=== PATIENT | male | born 1990 | race Asian ===

== ENCOUNTER 2021-06-25 09:40 | Emergency (ER) | payer OTHER ==
[~2021-06-25] VITALS: Ht 180.3 cm; Wt 95.3 kg
[2021-06-25 09:49] VITALS: BP_SYST 133
[2021-06-25] MEDS ORDERED: D-ME118S48 PO (10:47)
[2021-06-25] MEDS ORDERED: ZIT250 PO (10:47)
[2021-06-25 11:13] VITALS: BP_SYST 121
== END 2021-06-25 11:15 | disposition home or self-care (01) ==
LOC: SED 09:40
DX: J20.9 Acute bronchitis, unspecified (principal); Z79.899 Other long term (current) drug therapy
CPT/HCPCS: 71045; 99283